=== PATIENT | male | born 1940 | race Caucasian/White ===

== ENCOUNTER → 2019-05-20 | Outpatient (CLI) | payer OTHER | LOC: HYPER 06:12 → EDBD 06:12 → HYPER 14:12 | DX: E11.622 Type 2 diabetes mellitus with other skin ulcer (principal); L97.812 Non-pressure chronic ulcer of other part of right lower leg with fat layer exposed; M17.9 Osteoarthritis of knee, unspecified; E66.9 Obesity, unspecified; E66.3 Overweight; Z96.652 Presence of left artificial knee joint; Z68.39 Body mass index [BMI] 39.0-39.9, adult ==

== ENCOUNTER → 2019-05-27 | Outpatient (CLI) | payer OTHER | LOC: EDBD → HYPER 06:25 | DX: E11.622 Type 2 diabetes mellitus with other skin ulcer (principal); L97.811 Non-pressure chronic ulcer of other part of right lower leg limited to breakdown of skin; E66.3 Overweight; M17.9 Osteoarthritis of knee, unspecified; Z96.652 Presence of left artificial knee joint; Z68.39 Body mass index [BMI] 39.0-39.9, adult ==

== ENCOUNTER → 2019-06-10 | Outpatient (CLI) | payer OTHER | LOC: HYPER 06:53 | DX: E11.622 Type 2 diabetes mellitus with other skin ulcer (principal); L97.811 Non-pressure chronic ulcer of other part of right lower leg limited to breakdown of skin; S80.211D Abrasion, right knee, subsequent encounter; E66.3 Overweight; M17.9 Osteoarthritis of knee, unspecified; E66.9 Obesity, unspecified; Z68.39 Body mass index [BMI] 39.0-39.9, adult; Z96.652 Presence of left artificial knee joint; W19.XXXD Unspecified fall, subsequent encounter ==

== ENCOUNTER → 2019-06-24 | Outpatient (CLI) | payer OTHER | LOC: HYPER 06-17 07:16 | DX: S80.211D Abrasion, right knee, subsequent encounter (principal); E11.9 Type 2 diabetes mellitus without complications; E66.9 Obesity, unspecified; M17.9 Osteoarthritis of knee, unspecified; M19.90 Unspecified osteoarthritis, unspecified site; Z68.39 Body mass index [BMI] 39.0-39.9, adult; Z96.652 Presence of left artificial knee joint; W19.XXXD Unspecified fall, subsequent encounter ==

== ENCOUNTER → 2019-07-08 | Outpatient (CLI) | payer OTHER | LOC: HYPER 06:52 | DX: E11.622 Type 2 diabetes mellitus with other skin ulcer (principal); L97.811 Non-pressure chronic ulcer of other part of right lower leg limited to breakdown of skin; S80.211D Abrasion, right knee, subsequent encounter; E66.3 Overweight; M17.9 Osteoarthritis of knee, unspecified; E66.9 Obesity, unspecified; Z68.39 Body mass index [BMI] 39.0-39.9, adult; Z96.652 Presence of left artificial knee joint; X58.XXXD Exposure to other specified factors, subsequent encounter ==